=== PATIENT | female | born 1945 | race Caucasian/White ===

== ENCOUNTER → 2016-06-19 | Outpatient (CLI) | payer MEDICARE ==
--- NOTE | 2016-06-19 23:03 | MR ---
EXAMINATION TYPE: MR angio head wo con DATE OF EXAM: 06/19/2016 7:02 PM COMPARISON: 05/25/2015 HISTORY: 70-year-old female follow up for Aneurysm TECHNIQUE: High-resolution 3-D [id number] imaging of the [place]. Rotational 3-D reconst ructions generated on a dedicated independent workstation. FINDINGS: Redemonstrated dominant right vertebral artery. 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 There is a prominent right posterior communicating artery, normal variation. A 2.0 mm saccular dilatation at the right MCA bifurcation, axial image 61 is also redemonstrated with out appreciable change No significant stenosis, arterial occlusion, or other aneurysmal change seen. IMPRESSION: 1. 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 2. 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 3. Normal variation with a dominant right vertebral artery and a prominent right PCOM.
== END | disposition home or self-care (01) ==
LOC: RADMRIMAIN 18:23
PROVIDERS: ATTEND Internal Medicine Hematology & Oncology
DX: I67.1 Cerebral aneurysm, nonruptured (principal)
CPT/HCPCS: 70544

== ENCOUNTER 2016-09-04 19:31 | Emergency (ER) | payer MEDICARE ==
[2016-09-04 19:37] VITALS: BP 178/79; PULSE 86; RESP 18; TEMP 98
[2016-09-04] MEDS ORDERED: FAMOTIDINE 20 MG TAB PO STA (20:02)
[2016-09-04] MEDS ORDERED: diphenhydrAMINE 50 MG CAP PO STA (20:03)
--- NOTE | 2016-09-04 20:15 | ED ---
General Adult HPI - General Chief complaint: Allergic Reaction Stated complaint: Allergic Reaction Time Seen by Provider: 09/04/16 19:52 Source: patient Mode of arrival: ambulatory Limitations: no limitations - History of Present Illness Initial comments: 62-year-old female patient presents to emergency department today for evaluation of itchy bumps to her bilateral lower legs. Patient was concerned for ALLERGIC reaction. Patient states that she is camping at this time and was wearing shorts yesterday. Patient states she noticed the bumps last evening, and the burning and itching made it difficult for her to sleep. Patient denies any lesions to other areas of her body. She denies any shortness of breath, difficulty swallowing, throat swelling, dizziness, weakness, fever or chills. Denies any drainage or weeping from the sites. - Related Data Home Medications Medication Instructions Recorded Confirmed Multivitamin [Multivitamins Adult 1 tab PO BID 10/31/15 10/31/15 Gummies] Lisinopril [Zestril] 10 mg PO DAILY 09/04/16 09/04/16 predniSONE 15 mg PO DAILY 09/04/16 09/04/16 Previous Rx's Medication Instructions Recorded Famotidine [Pepcid] 20 mg PO DAILY #7 tablet 09/04/16 Allergies Allergy/AdvReac Type Severity Reaction Status Date / Time Penicillins Allergy Anaphylaxis Verified 09/04/16 20:07 /Hives Review of Systems ROS Statement: Those systems with pertinent positive or pertinent negative responses have been documented in the HPI. ROS Other: All systems not noted in ROS Statement are negative. Past Medical History Past Medical History: Hypertension Additional Past Medical History / Comment(s): hemolytic anemia, scoliosis History of Any Multi-Drug Resistant Organisms: None Reported Past Surgical History: Back Surgery, Orthopedic Surgery Additional Past Surgical History / Comment(s): right foot and right knee surgery Past Psychological History: No Psychological Hx Reported Smoking Status: Never smoker Past Alcohol Use History: None Reported Past Drug Use History: None Reported General Exam Limitations: no limitations General appearance: alert, in no apparent distress Head exam: Present: atraumatic, normocephalic, normal inspection Eye exam: Present: normal appearance, PERRL, EOMI. Absent: scleral icterus, conjunctival injection, periorbital swelling ENT exam: Present: normal exam, normal oropharynx, mucous membranes moist Neck exam: Present: normal inspection. Absent: tenderness, meningismus, lymphadenopathy Respiratory exam: Present: normal lung sounds bilaterally. Absent: respiratory distress, wheezes, rales, rhonchi, stridor Cardiovascular Exam: Present: regular rate, normal rhythm, normal heart sounds. Absent: systolic murmur, diastolic murmur, rubs, gallop, clicks GI/Abdominal exam: Present: soft, normal bowel sounds. Absent: distended, tenderness, guarding, rebound, rigid Neurological exam: Present: alert, oriented X3, CN II-XII intact Psychiatric exam: Present: normal affect, normal mood Skin exam: Present: warm, dry, intact, normal color, rash (Multiple singular erythematous wheals noted to bilateral lower legs.) Course Vital Signs 09/04/16 19:34 Temperature 98.0 F Pulse Rate 86 Respiratory 18 Rate Blood Pressure 178/79 O2 Sat by Pulse 99 Oximetry Medical Decision Making - Medical Decision Making 62-year-old female patient presented to emergency department today for evaluation of a rash to her bilateral lower legs. The lesions appear to be multiple bug bites which is consistent with patient's history of camping yesterday. As patient started taking steroid regimen for hemolytic anemia we will start patient on a course of Pepcid and recommend [id number] Benadryl for symptom control. Patient was instructed to follow-up with her primary care physician in one to 2 days for recheck. Patient verbalizes understanding and agrees this plan. Disposition Clinical Impression: Bug bites Disposition: HOME SELF-CARE Condition: Good Instructions: Insect Bite or Sting (ED) Additional Instructions: Apply cold compresses to affected areas. Take [id number] Benadryl one to 2 pills every 6 hours as needed for itching. Do not drive or operate heavy machinery while taking Benadryl. Follow-up with primary care physician in one to 2 days for a recheck or continued symptoms. Return for any new, worsening, or concerning symptoms. Prescriptions: Famotidine [Pepcid] 20 mg PO DAILY #7 tablet Referrals: Skye Morales MD [Primary Care Provider] - 1-2 days Time of Disposition: 20:10
== END 2016-09-04 20:19 | disposition home or self-care (01) ==
LOC: EC 19:31
DX: S80.861A Insect bite (nonvenomous), right lower leg, initial encounter (principal); S80.862A Insect bite (nonvenomous), left lower leg, initial encounter; I10 Essential (primary) hypertension; D58.9 Hereditary hemolytic anemia, unspecified; Z79.52 Long term (current) use of systemic steroids; Z79.899 Other long term (current) drug therapy; Z88.0 Allergy status to penicillin; Z98.890 Other specified postprocedural states; W57.XXXA Bitten or stung by nonvenomous insect and other nonvenomous arthropods, initial encounter; Y92.833 Campsite as the place of occurrence of the external cause
CPT/HCPCS: 99283

== ENCOUNTER 2018-04-21 08:16 | Emergency (ER) | payer MEDICARE ==
[2018-04-21 08:25] VITALS: PULSE 71; RESP 18; TEMP 98.7
[2018-04-21] MEDS ORDERED: SODIUM CHLORIDE 0.9% 1,000 ML IV ONE (08:50)
[2018-04-21] MEDS ORDERED: MORPHINE SULFATE 4 MG/ML SYRINGE IV STA (08:50)
--- NOTE | 2018-04-21 08:55 | ED ---
Fall HPI - General Chief Complaint: Fall Stated Complaint: FALL Time Seen by Provider: 04/21/18 08:30 Source: patient, RN notes reviewed, old records reviewed Mode of arrival: EMS - History of Present Illness Initial Comments: Patient is a 72-year-old female who presents emergency Department today with complaints of pulling down 6 stairs. Patient reports that she landed on her mid back. She complains of shortness of breath mid back pain and shoulder pain. She states that she did not hit her head or lose consciousness. Patient states that she is not on blood thinners. She complains of some pain radiating down the arms and legs. Patient states that she was called her friend. None a Motrin seen. EMS was called and brought Patient. She received IV fentanyl and Zofran. Patient complains of left shoulder and back pain and shortness of breath. Patient has a history of scoliosis with corrective surgery. - Related Data Home Medications Medication Instructions Recorded Confirmed Lisinopril [Zestril] 10 mg PO DAILY 09/04/16 04/21/18 predniSONE 7.5 mg PO DAILY 09/04/16 04/21/18 Amitriptyline HCl [Elavil] 40 mg PO HS 04/21/18 04/21/18 Folic Acid 1 mg PO DAILY 04/21/18 04/21/18 Gabapentin 300 mg PO BID@0800,1200 04/21/18 04/21/18 Gabapentin 600 mg PO HS@1800 04/21/18 04/21/18 Previous Rx's Medication Instructions Recorded Cyclobenzaprine [Flexeril] 10 mg PO TID #20 tab 04/21/18 HYDROcodone/APAP 5-325MG [[place] 1 tab PO Q6HR PRN #10 tab 04/21/18 5-325] Ibuprofen 600 mg PO TID #20 tablet 04/21/18 Allergies Allergy/AdvReac Type Severity Reaction Status Date / Time Penicillins Allergy Anaphylaxis Verified 04/21/18 08:28 /Denny Review of Systems ROS Statement: Those systems with pertinent positive or pertinent negative responses have been documented in the HPI. ROS Other: All systems not noted in ROS Statement are negative. Past Medical History Past Medical History: Hypertension Additional Past Medical History / Comment(s): hemolytic anemia, scoliosis History of Any Multi-Drug Resistant Organisms: None Reported Past Surgical History: Back Surgery, Orthopedic Surgery Additional Past Surgical History / Comment(s): right foot and right knee surgery l wrist Past Psychological History: No Psychological Hx Reported Smoking Status: Never smoker Past Alcohol Use History: None Reported Past Drug Use History: None Reported General Exam - General Exam Comments Initial Comments: 32-year-old female. Alert and oriented 3. Patient appears in moderate discomfort. General appearance: alert, in no apparent distress Head exam: Present: atraumatic, normocephalic, normal inspection Eye exam: Present: normal appearance, PERRL, EOMI. Absent: scleral icterus, conjunctival injection, periorbital swelling ENT exam: Present: normal exam, mucous membranes moist Neck exam: Present: normal inspection. Absent: tenderness, meningismus, lymphadenopathy Respiratory exam: Present: other (Patient is diminished lung sounds on him to take a deep breath due to pain.). Absent: normal lung sounds bilaterally, r espiratory distress, wheezes, rales, rhonchi, stridor Cardiovascular Exam: Present: regular rate, normal rhythm, normal heart sounds. Absent: systolic murmur, diastolic murmur, rubs, gallop, clicks GI/Abdominal exam: Present: soft, normal bowel sounds. Absent: distended, tenderness, guarding, rebound, rigid Extremities exam: Present: normal inspection, full ROM, normal capillary refill. Absent: tenderness, pedal edema, joint swelling, calf tenderness Back exam: Present: normal inspection, tenderness (Has significant tenderness over the thoracic and lumbar spine. No significant bruising noted. Scoliosis is noted. Tenderness over bilateral ribs.) Neurological exam: Present: alert, oriented X3, CN II-XII intact Psychiatric exam: Present: normal affect, normal mood Skin exam: Present: warm, dry, intact, normal color. Absent: rash Course Vital Signs 04/21/18 08:20 Temperature 98.7 F Pulse Rate 71 Respiratory 18 Rate Blood Pressure 133/78 O2 Sat by Pulse 94 L Oximetry Medical Decision Making - Medical Decision Making 9-year-old feel process versus pharmacy after traumatic fall going down 5 steps. She related multiple times on her mid and lower back. This time she reports pain with taking a deep breath. Patient given IV fluids and laboratory obtained. She is given IV pain medication. She has pain with any range of motion. She does have history of severe scoliosis. At this time Patient CT of the brain and C-spine are negative for any acute process. CT chest abdomen pelvis were completed with contrast Patient rib pain to palpation and some upper abdominal pain. This was negative for any acute process. No evidence of traumatic injury to the chest or abdomen. The thoracic and lumbar spine were visualized and negative for any acute fracture. Patient does continue to have significant pain. I discussed at this time Patient will be discharged with a short course of pain medication for genetic injury and she is likely to have bruising. Her lab work was otherwise unremarkable. Patient will be discharged at this time with following up with her PCP. PATIENT answer return parameters were discussed. - Lab Data Result diagrams: 04/21/18 09:17 04/21/18 09:17 Lab Results 04/21/18 04/21/18 04/21/18 Range/Units 09:17 09:17 09:17 WBC 14.0 H (3.8-10.6) k/uL RBC 4.54 (3.80-5.40) m/uL Hgb 14.2 (11.4-16.0) gm/dL Hct 43.0 (34.0-46.0) % MCV 94.6 (80.0-100.0) fL MCH 31.3 (25.0-35.0) pg MCHC 33.1 (31.0-37.0) g/dL RDW 14.9 (11.5-15.5) % Plt Count 175 (150-450) k/uL Neutrophils % 84 % Lymphocytes % 8 % Monocytes % 6 % Eosinophils % 1 % Basophils % 0 % Neutrophils # 11.7 H (1.3-7.7) k/uL Lymphocytes # 1.2 (1.0-4.8) k/uL Monocytes # 0.9 (0-1.0) k/uL Eosinophils # 0.1 (0-0.7) k/uL Basophils # 0.0 (0-0.2) k/uL Poikilocytosis Slight PT (9.0-12.0) sec INR (<1.2) APTT (22.0-30.0) sec Sodium 139 (137-145) mmol/L Potassium 3.9 (3.5-5.1) mmol/L Chloride 106 (98-107) mmol/L Carbon Dioxide 28 (22-30) mmol/L Anion Gap 5 mmol/L BUN 20 H (7-17) mg/dL Creatinine 0.80 (0.52-1.04) mg/dL Est GFR (CKD-EPI)AfAm 87 (>60 ml/min/1.73 sqM) Est GFR (CKD-EPI)NonAf 75 (>60 ml/min/1.73 sqM) Glucose 91 (74-99) mg/dL Calcium 8.9 (8.4-10.2) mg/dL Total Bilirubin 0.4 (0.2-1.3) mg/dL AST 19 (14-36) U/L ALT 32 (9-52) U/L Alkaline Phosphatase 56 (38-126) U/L Troponin I (0.000-0.034) ng/mL Total Protein 6.2 L (6.3-8.2) g/dL Albumin 3.5 (3.5-5.0) g/dL Blood Type B Positive Blood Type Recheck No Antibody Screen NEGATIVE Spec Expiration Date 04/24/2018 - 231604/21/18 04/21/18 Range/Units 09:17 09:17 WBC (3.8-10.6) k/uL RBC (3.80-5.40) m/uL Hgb (11.4-16.0) gm/dL Hct (34.0-46.0) % MCV (80.0-100.0) fL MCH (25.0-35.0) pg MCHC (31.0-37.0) g/dL RDW (11.5-15.5) % Plt Count (150-450) k/uL Neutrophils % % Lymphocytes % % Monocytes % % Eosinophils % % Basophils % % Neutrophils # (1.3-7.7) k/uL Lymphocytes # (1.0-4.8) k/uL Monocytes # (0-1.0) k/uL Eosinophils # (0-0.7) k/uL Basophils # (0-0.2) k/uL Poikilocytosis PT 10.7 (9.0-12.0) sec INR 1.0 (<1.2) APTT 20.4 L (22.0-30.0) sec Sodium (137-145) mmol/L Potassium (3.5-5.1) mmol/L Chloride (98-107) mmol/L Carbon Dioxide (22-30) mmol/L Anion Gap mmol/L BUN (7-17) mg/dL Creatinine (0.52-1.04) mg/dL Est GFR (CKD-EPI)AfAm (>60 ml/min/1.73 sqM) Est GFR (CKD-EPI)NonAf (>60 ml/min/1.73 sqM) Glucose (74-99) mg/dL Calcium (8.4-10.2) mg/dL Total Bilirubin (0.2-1.3) mg/dL AST (14-36) U/L ALT (9-52) U/L Alkaline Phosphatase (38-126) U/L Troponin I <0.012 (0.000-0.034) ng/mL Total Protein (6.3-8.2) g/dL Albumin (3.5-5.0) g/dL Blood Type Blood Type Recheck Antibody Screen Spec Expiration Date 04/21/18 09:37 EKG performed at 908 shows normal sinus rhythm possible anterior infarct indeterminate. Ventricularly of 73 bpm. Verbal is 174 ms. QS duration 76 most seconds. QT QTc is 386/425 ms. No nodes of ST elevation. - Radiology Data Radiology results: report reviewed CT chest abdomen pelvis negative for any traumatic injury of the chest. No evidence of traumatic injury for the abdomen or pelvis. No evidence for acute fracture subluxation of the cervical spine. CT of the brain shows chronic changes and ischemic small vessel disease, But negative for any acute intracranial process. Disposition Clinical Impression: Fall, Acute midline thoracic back pain, Lumbar back pain, Rib contusion Disposition: HOME SELF-CARE Condition: Good Instructions (If sedation given, give patient instructions): Fall Prevention for Older Adults (ED), Acute Low Back Pain (ED), Rib Contusion (ED) Additional Instructions: Patient advised that close follow-up with primary care physician. Take medication as prescribed. Return to emergency department if any alarming signs or symptoms occur. Patient should take a temperature medication such as Motrin and Tylenol as well. Apply a cool compresses over the areas that are sore. In 3 days switched to warm compresses. Prescriptions: Cyclobenzaprine [Flexeril] 10 mg PO TID #20 tab Ibuprofen 600 mg PO TID #20 tablet HYDROcodone/APAP 5-325MG [[place] 5-325] 1 tab PO Q6HR PRN #10 tab PRN Reason: Pain Is patient prescribed a controlled substance at d/c from ED?: Yes When asked, does pt state using other controlled substances?: No If prescribed controlled substance>3 days was MAPS reviewed?: Prescribed <3 Days If opioid is for acute pain is fill amount 7 days or less?: Yes If Rx opioid, was Start Talking consent form obtained?: Yes Referrals: Skye Morales MD [Primary Care Provider] - 1-2 days Time of Disposition: 11:39
[2018-04-21 09:40] LABS: Basophils % (A) 0 %; Eosinophils # (A) 0.1 k/uL (0-0.7); Eosinophils % (A) 1 %; HGB 14.2 gm/dL (11.4-16.0); Lymphocytes # (A) 1.2 k/uL (1.0-4.8); Lymphocytes % (A) 8 %; MCH 31.3 pg (25.0-35.0); MCHC 33.1 g/dL (31.0-37.0); MCV 94.6 fL (80.0-100.0); Mean Platelet Volume 6.6; Monocytes # (A) 0.9 k/uL (0-1.0); Monocytes % (A) 6 %; Neutrophils # (A) 11.7 k/uL (1.3-7.7); Neutrophils % (A) 84 %; Platelet Count 175 k/uL (150-450); Poikilocytosis Slight; RBC 4.54 m/uL (3.80-5.40); RDW 14.9 % (11.5-15.5)
[2018-04-21 09:55] LABS: Prothrombin Time 10.7 sec (9.0-12.0)
[2018-04-21 09:57] LABS: Albumin 3.5 g/dL (3.5-5.0); Calcium 8.9 mg/dL (8.4-10.2); Potassium 3.9 mmol/L (3.5-5.1); Total Bilirubin 0.4 mg/dL (0.2-1.3); Total Protein 6.2 g/dL (6.3-8.2)
[2018-04-21 09:59] LABS: Partial Thromboplastin Time 20.4 sec (22.0-30.0)
--- NOTE | 2018-04-21 11:04 | CT ---
EXAMINATION TYPE: CT brain christopher renteria con DATE OF EXAM: 04/21/2018 COMPARISON: 04/29/2015 HISTORY: Fall down 6 stairs, head and neck pain. CT DLP: 1316.[address] of the brain was performed. The ventricles, basal cisterns and sulci overlying the cerebral convexities demonstrate mild to moder ate enlargement. Stable bifrontal atrophy. There is no evidence for intracranial hemorrhage or sulcal effacement. There is decreased attenuatio n about the periventricular white matter and deep white matter of both cerebral hemispheres, compatib le with chronic small vessel ischemia. No mass effects are seen. If symptoms persist consider MRI. Osseous calvarium is intact. IMPRESSION: 1. Age related atrophic and chronic small vessel ischemic change without acute intracranial process seen at this time. CT Cervical Spine: Unenhanced CT of the cervical spine was performed with bone and soft tissue window settings submitted . Coronal and sagittal reconstruction is obtained. There is normal alignment and prevertebral soft tissues. No evidence for acute cervical fracture . Scattered degenerative disc disease and spondylosis. Biapical scarring. IMPRESSION: 1. No evidence for acute fracture or subluxation of the cervical spine.
--- NOTE | 2018-04-21 11:09 | CT ---
EXAMINATION TYPE: CT ChestAbdPelvis w con DATE OF EXAM: 04/21/2018 COMPARISON: None HISTORY: Fall down 6 stairs, back pain CT DLP: 1114.8 mGycm CONTRAST: Contrast enhanced Trauma CT of the Chest, Abdomen and Pelvis is performed with IV Contrast, patient i njected with 100 mL of Isovue 300. Chest: LUNGS: There is no evidence for pneumothorax. The lungs are clear and free of focal contusion. Depen dent basilar atelectasis. No pleural effusion MEDIASTINUM: Thoracic aorta is of normal caliber without CT evidence to suggest traumatic induced ao rtic injury. No mediastinal fluid or blood. No pericardial fluid or cardia abnormality. HILAR STRUCTURES: No evidence for mass. No hilar adenopathy is appreciated. OTHER: No significant abnormality. OSSEOUS: Severe S-shaped thoracolumbar scoliosis. CT ABDOMEN AND PELVIS FINDINGS: LIVER/GB: No focal laceration, contusion or subcapsular hemorrhage. No calcified gallstones. No s pace occupying hepatic lesion. Biliary tree is of normal caliber. PANCREAS: No evidence for transection. No inflammation. No distinct mass. SPLEEN: No focal laceration, contusion or subcapsular hemorrhage. ADRENALS: No hemorrhage. No nodule. No thickening. KIDNEYS/BLADDER: No focal laceration, contusion or subcapsular hemorrhage. No hydronephrosis. No n ephrolithiasis. No distinct renal mass. BOWEL: Bowel is intact. No evidence for pneumoperitoneum. Fixed hiatal hernia. GENITAL ORGANS: No gross abnormality. LYMPH NODES: No greater than 1cm abdominal or pelvic lymph nodes areappreciated. AORTA: No traumatic aortic injury visualized. OSSEOUS STRUCTURES: Severe S-shaped thoracolumbar scoliosis. Degenerative changes lumbar spine. No f racture seen. OTHER: No evidence for hemoperitoneum. IMPRESSION: 1. No evidence for traumatic injury to the chest. 2. No evidence for traumatic injury to the abdomen or pelvis.
[2018-04-21] MEDS ORDERED: MORPHINE SULFATE 2 MG/ML SYRINGE IVP STA (11:56)
[2018-04-21 12:35] VITALS: BP 122/68
== END 2018-04-21 12:34 | disposition home or self-care (01) ==
LOC: EC 08:16
DX: S20.212A Contusion of left front wall of thorax, initial encounter (principal); S20.211A Contusion of right front wall of thorax, initial encounter; M54.5 Low back pain; M54.6 Pain in thoracic spine; R06.02 Shortness of breath; I10 Essential (primary) hypertension; D58.9 Hereditary hemolytic anemia, unspecified; Z79.52 Long term (current) use of systemic steroids; Z79.899 Other long term (current) drug therapy; Z88.0 Allergy status to penicillin; W10.9XXA Fall (on) (from) unspecified stairs and steps, initial encounter
CPT/HCPCS: 36415; 93005; 86900; 86901; 80053; 84484; 85025; 85610; 85730; 86850; 72125; 70450; 71260; 74177; 99285; 96374; 96376; 96361; J2270 ×2; Q9967